=== PATIENT | female | born 1975 | race Caucasian/White ===

== ENCOUNTER → 2022-01-09 07:47 | Day surgery (SDC) | payer MEDICARE, MEDICAID, SELFPAY ==
[2022-01-03 12:06] VITALS: BMI 42.9
--- NOTE | 2022-01-06 13:17 | MHC.SHP ---
Pre-Procedural Eval Section A Date of Service: 01/06/22 The patient is an INPATIENT: No Changes since office visit: No Cold of Flu in the past 2 weeks, No New Medical Problems, No Changes in Medication and No Patient answered all questions The History & Physical has been completed within 30 days and I have reviewed it.: Yes Section B Chief Complaint: Age-related nuclear cataract, right eye Allergies: Allergies Allergy/AdvReac Type Severity Reaction Status Date / Time No Known Allergies Allergy Verified 01/03/22 12:03 Plan Diagnosis/Plan: Unchanged I have reviewed the history and physical and performed a pertinent physical examination on my patient. No changes have occurred unless specified.
[2022-01-09 09:47] LABS: Glucose, Whole Blood 103 mg/dL (60-115)
[2022-01-09] MEDS: Tetracaine HCl/PF 0.5% Oph Sol 4 ML DROPS 1 DROP EYE-RIGHT (09:50)
[2022-01-09] MEDS: Ketorolac Tromethamine 0.5% Op 5 ML DROPS 1 DROP EYE-RIGHT ×3 (09:51→10:01)
[2022-01-09] MEDS: Tropicamide 1 % Ophth Sol 3 ML BTL 1 DROP EYE-RIGHT ×3 (09:51→10:01)
[2022-01-09] MEDS: Cyclopentolate 1 % Ophth Sol 2 ML DRPBTL 1 DROP EYE-RIGHT ×3 (09:51→10:01)
[2022-01-09] MEDS: Phenylephrine HCL 2.5% Oph SoL 2 ML BOTTLE 1 DROP EYE-RIGHT ×3 (09:51→10:01)
[2022-01-09 10:13] VITALS: BP 122/42; PULSE 92; RESP 18; TEMP 36.6; O2SAT 96
[2022-01-09 10:21] LABS: Anion Gap 22 (12-20); Carbon Dioxide 24 mmol/L (22-29); Chloride 93 mmol/L (96-108); Potassium 6.5 mmol/L (3.3-5.1); Sodium 132 mmol/L (135-145)
[2022-01-09 10:24] LABS: HCG Quantitative < 2 mIU/mL
--- NOTE | 2022-01-09 10:38 | PC.NURSE ---
Preop Lab results had critical results as patient is going to dialysis today at [address] Simms and surgeon made decision to cancel procedure. IV removed. Patient and spouse updated that pt eye had been dilated for surgery and what precautions to follow at home. Also updated that surgeon/anesthesia stated that patient needs dialysis the day before her next cataract surgical day. Both verbalized understanding.
== END ==
PROVIDERS: Anesthesiology; Visit Provider Ophthalmology
PROC: (CPT 66985; principal; 2022-01-09 10:30)
DX: H25.11 Age-related nuclear cataract, right eye (principal); Z53.9 Procedure and treatment not carried out, unspecified reason; E11.9 Type 2 diabetes mellitus without complications; I10 Essential (primary) hypertension; Z79.4 Long term (current) use of insulin; Z79.899 Other long term (current) drug therapy
CPT/HCPCS: 36415; 80051; 82947; 84702; J3300